=== PATIENT | male | born 1950 | race Caucasian/White ===

== ENCOUNTER → 2021-01-26 | Outpatient (CLI) | payer MEDICARE, OTHER ==
[2021-01-26 17:24] LABS: BUN/CREATININE RATIO 28 (0-10)
== END ==
LOC: LAB 16:29
PROVIDERS: Internal Medicine Pulmonary Disease
DX: R60.0 Localized edema (principal); J44.9 Chronic obstructive pulmonary disease, unspecified
CPT/HCPCS: 36415; 80048

== ENCOUNTER 2021-12-09 13:41 | Inpatient (IN) | payer MEDICARE, OTHER ==
[~2021-12-09] VITALS: Ht 177.8 cm; Wt 103.4 kg
[2021-12-09 14:32] LABS: HEMOGLOBIN 12.3 gm/dl (14.0-17.5); RED BLOOD COUNT 4.43 M/UL (4.20-5.50)
[2021-12-09 15:38] LABS: BUN/CREATININE RATIO 26 (0-10)
[2021-12-09] MEDS ORDERED: ASPIRIN EC81 MG PO (19:03)
[2021-12-09] MEDS ORDERED: PREDNISONE10 MG PO (19:04)
[2021-12-09] MEDS ORDERED: METOPROLOL TART25 MG PO (19:04)
[2021-12-09] MEDS ORDERED: LISINOPRIL5 MG PO (19:04)
[2021-12-09] MEDS ORDERED: DIAMOX 250 MG250 MG PO (19:05)
[2021-12-09] MEDS ORDERED: STIOLTO RESPIMAT4 GM INH (19:06)
[2021-12-09] MEDS ORDERED: PROAIR HFA8.5 GM INH (19:06)
[2021-12-10 04:07] LABS: HEMOGLOBIN 11.8 gm/dl (14.0-17.5); RED BLOOD COUNT 4.22 M/UL (4.20-5.50); WHITE BLOOD COUNT 4.2 K/UL (4.5-11.0)
[2021-12-10 04:34] LABS: BUN/CREATININE RATIO 34 (0-10)
[2021-12-10 12:55] LABS: BORDETELLA PARAPERTUSSIS Not Detected (Not Detectd); BORDETELLA PERTUSSIS Not Detected (Not Detectd); CHLAMYDIA PNEUMONIAE Not Detected (Not Detectd); CORONAVIRUS HKU1 Not Detected (Not Detectd); CORONAVIRUS NL63 Not Detected (Not Detectd); CORONAVIRUS OC43 Not Detected (Not Detectd); CORONOAVIRUS 229E Not Detected (Not Detectd); HUMAN METAPNEUMOVIRUS Not Detected (Not Detectd); HUMAN RHINOVIRUS/ENTEROVIRUS Not Detected (Not Detectd); INFLUENZA A Not Detected (Not Detectd); INFLUENZA B Not Detected (Not Detectd); MYCOPLASMA PNEUMONIAE Not Detected (Not Detectd); PARAINFLUENZA VIRUS 1 Not Detected (Not Detectd); PARAINFLUENZA VIRUS 2 Not Detected (Not Detectd); PARAINFLUENZA VIRUS 3 Not Detected (Not Detectd); PARAINFLUENZA VIRUS 4 Not Detected (Not Detectd); RESPIRATORY SYNCYTIAL VIRUS Not Detected (Not Detectd)
[2021-12-10 15:58] LABS: SARS-CoV-2 DETECTED (Not Detectd)
[2021-12-11 04:57] LABS: HEMOGLOBIN 11.1 gm/dl (14.0-17.5); RED BLOOD COUNT 3.95 M/UL (4.20-5.50); WHITE BLOOD COUNT 3.5 K/UL (4.5-11.0)
[2021-12-11 05:16] LABS: BUN/CREATININE RATIO 38 (0-10)
[2021-12-12 04:49] LABS: HEMOGLOBIN 11.1 gm/dl (14.0-17.5); RED BLOOD COUNT 3.94 M/UL (4.20-5.50)
[2021-12-12 04:53] LABS: WHITE BLOOD COUNT 2.5 K/UL (4.5-11.0)
[2021-12-12 05:06] LABS: BUN/CREATININE RATIO 31 (0-10)
[2021-12-13 05:02] LABS: HEMOGLOBIN 10.3 gm/dl (14.0-17.5); RED BLOOD COUNT 3.65 M/UL (4.20-5.50); WHITE BLOOD COUNT 2.2 K/UL (4.5-11.0)
[2021-12-13 05:26] LABS: BUN/CREATININE RATIO 53 (0-10)
[2021-12-13 16:10] LABS: ORGANISM ID Not indicated. (.); SPECIMEN SOURCE Urine (.); STREPTOCOCCUS PNEUMONIAE AG Negative (Negative)
[2021-12-14 05:14] LABS: HEMOGLOBIN 8.9 gm/dl (14.0-17.5); WHITE BLOOD COUNT 2.4 K/UL (4.5-11.0)
[2021-12-14 05:19] LABS: RED BLOOD COUNT 3.18 M/UL (4.20-5.50)
[2021-12-14 08:37] LABS: BUN/CREATININE RATIO 56 (0-10)
[2021-12-14 14:16] LABS: HEMATOCRIT 31.6 % (37.5-51.0)
[2021-12-14 21:36] LABS: HEMOGLOBIN 7.7 gm/dl (14.0-17.5)
[2021-12-15 08:17] LABS: BUN/CREATININE RATIO 52 (0-10)
[2021-12-15 10:12] LABS: RED BLOOD COUNT 2.88 M/UL (4.20-5.50)
[2021-12-15 10:13] LABS: WHITE BLOOD COUNT 7.4 K/UL (4.5-11.0)
[2021-12-16 04:59] LABS: RED BLOOD COUNT 2.4 M/UL (4.20-5.50); WHITE BLOOD COUNT 4.5 K/UL (4.5-11.0)
[2021-12-16 05:00] LABS: HEMOGLOBIN 6.6 gm/dl (14.0-17.5)
[2021-12-16 05:10] LABS: BUN/CREATININE RATIO 33 (0-10)
--- NOTE | 2021-12-16 06:55 | NUR ---
SPOKE WITH THE PATIENTS ABOUT TRANSFUSING 1 UNIT OF PRBCS. THE PATIENT HASD ALREADY CONSENTED TO TREATMENT. HIS ALSO CONSENTS TO HIM RECIEVING 1 UNIT PRBCS. CONSENT IN CHART.
[2021-12-16 09:54] LABS: RED BLOOD COUNT 2.34 M/UL (4.20-5.50); WHITE BLOOD COUNT 4.3 K/UL (4.5-11.0)
[2021-12-16 09:57] LABS: HEMOGLOBIN 6.8 gm/dl (14.0-17.5)
[2021-12-16 15:43] LABS: HEMOGLOBIN 7.8 gm/dl (14.0-17.5)
--- NOTE | 2021-12-16 16:23 | NUR ---
RECTAL TUIBE REMOVED DUE TO THICKENED STOOL NOT MOVING THROUGH TUBE.
[2021-12-17 06:59] LABS: HEMOGLOBIN 7.8 gm/dl (14.0-17.5)
[2021-12-17 07:05] LABS: RED BLOOD COUNT 2.73 M/UL (4.20-5.50); WHITE BLOOD COUNT 5.5 K/UL (4.5-11.0)
[2021-12-17 08:01] LABS: BUN/CREATININE RATIO 25 (0-10)
[2021-12-18 05:13] LABS: HEMOGLOBIN 8.4 gm/dl (14.0-17.5); RED BLOOD COUNT 2.93 M/UL (4.20-5.50); WHITE BLOOD COUNT 5.4 K/UL (4.5-11.0)
[2021-12-18 07:16] LABS: BUN/CREATININE RATIO 23 (0-10)
[2021-12-19 05:40] LABS: HEMOGLOBIN 8.4 gm/dl (14.0-17.5); RED BLOOD COUNT 2.86 M/UL (4.20-5.50)
[2021-12-19 05:56] LABS: WHITE BLOOD COUNT 7.1 K/UL (4.5-11.0)
[2021-12-19 06:16] LABS: BUN/CREATININE RATIO 17 (0-10)
[2021-12-20 05:24] LABS: HEMOGLOBIN 8.5 gm/dl (14.0-17.5); RED BLOOD COUNT 2.91 M/UL (4.20-5.50); WHITE BLOOD COUNT 6.9 K/UL (4.5-11.0)
[2021-12-20 05:57] LABS: BUN/CREATININE RATIO 15 (0-10)
[2021-12-21 02:54] LABS: HEMOGLOBIN 9.3 gm/dl (14.0-17.5)
[2021-12-21 02:55] LABS: RED BLOOD COUNT 3.22 M/UL (4.20-5.50); WHITE BLOOD COUNT 8.7 K/UL (4.5-11.0)
[2021-12-21 03:30] LABS: BUN/CREATININE RATIO 17 (0-10)
[2021-12-22 06:01] LABS: HEMOGLOBIN 9.9 gm/dl (14.0-17.5); RED BLOOD COUNT 3.43 M/UL (4.20-5.50); WHITE BLOOD COUNT 8.6 K/UL (4.5-11.0)
[2021-12-22 06:25] LABS: BUN/CREATININE RATIO 20 (0-10)
--- NOTE | 2021-12-22 12:36 | NUR ---
OFFERED TO REMOVE DOMINGUEZ CATHETER. OFFERED TO LET PATIENT USE A URINAL. PATIENT REFUSED TO LET STAFF REMOVE DOMINGUEZ CATHETER, STATES HE CANT USE A URINAL. WILL INFORM
[2021-12-23 02:43] LABS: HEMOGLOBIN 9.4 gm/dl (14.0-17.5); RED BLOOD COUNT 3.28 M/UL (4.20-5.50); WHITE BLOOD COUNT 6.8 K/UL (4.5-11.0)
[2021-12-23 03:09] LABS: BUN/CREATININE RATIO 20 (0-10)
[2021-12-24 04:35] LABS: HEMOGLOBIN 9.9 gm/dl (14.0-17.5); RED BLOOD COUNT 3.44 M/UL (4.20-5.50); WHITE BLOOD COUNT 6.9 K/UL (4.5-11.0)
[2021-12-24 04:52] LABS: BUN/CREATININE RATIO 15 (0-10)
[2021-12-25 07:51] LABS: RED BLOOD COUNT 3.51 M/UL (4.20-5.50)
[2021-12-25 08:19] LABS: BUN/CREATININE RATIO 18 (0-10)
[2021-12-26 08:41] LABS: HEMOGLOBIN 9.4 gm/dl (14.0-17.5); RED BLOOD COUNT 3.3 M/UL (4.20-5.50); WHITE BLOOD COUNT 7.5 K/UL (4.5-11.0)
[2021-12-26 09:05] LABS: BUN/CREATININE RATIO 15 (0-10)
[2021-12-27 04:00] LABS: HEMOGLOBIN 9.3 gm/dl (14.0-17.5); RED BLOOD COUNT 3.3 M/UL (4.20-5.50); WHITE BLOOD COUNT 7.5 K/UL (4.5-11.0)
[2021-12-27 04:15] LABS: BUN/CREATININE RATIO 15 (0-10)
[2021-12-28 03:08] LABS: HEMOGLOBIN 9.8 gm/dl (14.0-17.5); RED BLOOD COUNT 3.48 M/UL (4.20-5.50); WHITE BLOOD COUNT 7.7 K/UL (4.5-11.0)
[2021-12-28 03:46] LABS: BUN/CREATININE RATIO 18 (0-10)
[2021-12-30] MEDS ORDERED: PROTONIX 40 MG40 M1 PO (10:39)
[2021-12-30] MEDS ORDERED: IPRAT-ALBUT 0.5-3 ML NEB (10:39)
[2021-12-30] MEDS ORDERED: VITAMIN D 40400 UNIT PO (10:39)
[2021-12-30] MEDS ORDERED: CELEXA 20MG TAB20 MG PO (10:39)
[2021-12-30] MEDS ORDERED: THERAGRAN M TAB1 EA PO (10:39)
[2021-12-30] MEDS ORDERED: BUDESONIDE0.5 MG/2 M NEB (10:39)
[2021-12-30] MEDS ORDERED: FLORANEX GRANU1 EACH PO (10:39)
== END 2021-12-30 20:00 | DRG 871 ==
LOC: ER1 13:41 → CDU 16:26 → PROG CARE 16:26 → CCU 16:26 → PROG CARE 12-20 17:56
PROVIDERS: Internal Medicine; Internal Medicine Critical Care Medicine; Internal Medicine Hematology & Oncology; Internal Medicine Pulmonary Disease; Physician Assistant Medical; Registered Nurse; ADMIT Internal Medicine
PROC: 8E0ZXY6 Isolation (ICD-10-PCS; principal; 2021-12-09)
PROC: XW033E5 Introduction of Remdesivir Anti-infective into Peripheral Vein, Percutaneous Approach, New Technology Group 5 (ICD-10-PCS; 2021-12-09)
PROC: 3E0333Z Introduction of Anti-inflammatory into Peripheral Vein, Percutaneous Approach (ICD-10-PCS; 2021-12-09)
PROC: 5A09357 Assistance with Respiratory Ventilation, Less than 24 Consecutive Hours, Continuous Positive Airway Pressure (ICD-10-PCS; 2021-12-09)
PROC: 3E03329 Introduction of Other Anti-infective into Peripheral Vein, Percutaneous Approach (ICD-10-PCS; 2021-12-09)
PROC: XW033H5 Introduction of Tocilizumab into Peripheral Vein, Percutaneous Approach, New Technology Group 5 (ICD-10-PCS; 2021-12-10)
PROC: 5A0935A Assistance with Respiratory Ventilation, Less than 24 Consecutive Hours, High Flow/Velocity Cannula (ICD-10-PCS; 2021-12-10)
PROC: 5A09357 Assistance with Respiratory Ventilation, Less than 24 Consecutive Hours, Continuous Positive Airway Pressure (ICD-10-PCS; 2021-12-11)
PROC: B24BZZZ Ultrasonography of Heart with Aorta (ICD-10-PCS; 2021-12-12)
PROC: 5A0935A Assistance with Respiratory Ventilation, Less than 24 Consecutive Hours, High Flow/Velocity Cannula (ICD-10-PCS; 2021-12-12)
PROC: 5A09357 Assistance with Respiratory Ventilation, Less than 24 Consecutive Hours, Continuous Positive Airway Pressure (ICD-10-PCS; 2021-12-13)
PROC: 5A0935A Assistance with Respiratory Ventilation, Less than 24 Consecutive Hours, High Flow/Velocity Cannula (ICD-10-PCS; 2021-12-13)
PROC: 5A09357 Assistance with Respiratory Ventilation, Less than 24 Consecutive Hours, Continuous Positive Airway Pressure (ICD-10-PCS; 2021-12-14)
PROC: 5A0935A Assistance with Respiratory Ventilation, Less than 24 Consecutive Hours, High Flow/Velocity Cannula (ICD-10-PCS; 2021-12-15)
PROC: 30233N1 Transfusion of Nonautologous Red Blood Cells into Peripheral Vein, Percutaneous Approach (ICD-10-PCS; 2021-12-16)
PROC: 5A09357 Assistance with Respiratory Ventilation, Less than 24 Consecutive Hours, Continuous Positive Airway Pressure (ICD-10-PCS; 2021-12-16)
PROC: 5A0935A Assistance with Respiratory Ventilation, Less than 24 Consecutive Hours, High Flow/Velocity Cannula (ICD-10-PCS; 2021-12-16)
PROC: 5A09357 Assistance with Respiratory Ventilation, Less than 24 Consecutive Hours, Continuous Positive Airway Pressure (ICD-10-PCS; 2021-12-17)
PROC: 5A0935A Assistance with Respiratory Ventilation, Less than 24 Consecutive Hours, High Flow/Velocity Cannula (ICD-10-PCS; 2021-12-17)
PROC: 5A09357 Assistance with Respiratory Ventilation, Less than 24 Consecutive Hours, Continuous Positive Airway Pressure (ICD-10-PCS; 2021-12-17)
PROC: 5A0935A Assistance with Respiratory Ventilation, Less than 24 Consecutive Hours, High Flow/Velocity Cannula (ICD-10-PCS; 2021-12-18)
PROC: 5A09357 Assistance with Respiratory Ventilation, Less than 24 Consecutive Hours, Continuous Positive Airway Pressure (ICD-10-PCS; 2021-12-19)
PROC: 5A0935A Assistance with Respiratory Ventilation, Less than 24 Consecutive Hours, High Flow/Velocity Cannula (ICD-10-PCS; 2021-12-19)
PROC: 5A09357 Assistance with Respiratory Ventilation, Less than 24 Consecutive Hours, Continuous Positive Airway Pressure (ICD-10-PCS; 2021-12-20)
PROC: 5A09357 Assistance with Respiratory Ventilation, Less than 24 Consecutive Hours, Continuous Positive Airway Pressure (ICD-10-PCS; 2021-12-22)
PROC: 5A09357 Assistance with Respiratory Ventilation, Less than 24 Consecutive Hours, Continuous Positive Airway Pressure (ICD-10-PCS; 2021-12-23)
PROC: 5A09357 Assistance with Respiratory Ventilation, Less than 24 Consecutive Hours, Continuous Positive Airway Pressure (ICD-10-PCS; 2021-12-23)
PROC: 5A0935A Assistance with Respiratory Ventilation, Less than 24 Consecutive Hours, High Flow/Velocity Cannula (ICD-10-PCS; 2021-12-23)
PROC: 5A09357 Assistance with Respiratory Ventilation, Less than 24 Consecutive Hours, Continuous Positive Airway Pressure (ICD-10-PCS; 2021-12-24)
PROC: 5A0935A Assistance with Respiratory Ventilation, Less than 24 Consecutive Hours, High Flow/Velocity Cannula (ICD-10-PCS; 2021-12-24)
PROC: 5A09357 Assistance with Respiratory Ventilation, Less than 24 Consecutive Hours, Continuous Positive Airway Pressure (ICD-10-PCS; 2021-12-25)
PROC: 5A0935A Assistance with Respiratory Ventilation, Less than 24 Consecutive Hours, High Flow/Velocity Cannula (ICD-10-PCS; 2021-12-25)
PROC: 5A0935A Assistance with Respiratory Ventilation, Less than 24 Consecutive Hours, High Flow/Velocity Cannula (ICD-10-PCS; 2021-12-25)
PROC: 5A09357 Assistance with Respiratory Ventilation, Less than 24 Consecutive Hours, Continuous Positive Airway Pressure (ICD-10-PCS; 2021-12-26)
PROC: 5A0945A Assistance with Respiratory Ventilation, 24-96 Consecutive Hours, High Flow/Velocity Cannula (ICD-10-PCS; 2021-12-26)
PROC: 5A0935A Assistance with Respiratory Ventilation, Less than 24 Consecutive Hours, High Flow/Velocity Cannula (ICD-10-PCS; 2021-12-30)
DX: A41.89 Other specified sepsis (principal); U07.1 COVID-19; J12.82 Pneumonia due to coronavirus disease 2019; J96.21 Acute and chronic respiratory failure with hypoxia; J96.22 Acute and chronic respiratory failure with hypercapnia; J15.9 Unspecified bacterial pneumonia; R65.21 Severe sepsis with septic shock; J44.0 Chronic obstructive pulmonary disease with (acute) lower respiratory infection; E66.2 Morbid (severe) obesity with alveolar hypoventilation; D61.818 Other pancytopenia; K92.2 Gastrointestinal hemorrhage, unspecified; D62 Acute posthemorrhagic anemia; I50.32 Chronic diastolic (congestive) heart failure; J44.1 Chronic obstructive pulmonary disease with (acute) exacerbation; L89.322 Pressure ulcer of left buttock, stage 2; D69.6 Thrombocytopenia, unspecified; L89.312 Pressure ulcer of right buttock, stage 2; G47.33 Obstructive sleep apnea (adult) (pediatric); L89.152 Pressure ulcer of sacral region, stage 2; B96.89 Other specified bacterial agents as the cause of diseases classified elsewhere; K22.9 Disease of esophagus, unspecified; I48.0 Paroxysmal atrial fibrillation; R53.81 Other malaise; Z79.01 Long term (current) use of anticoagulants; Z99.81 Dependence on supplemental oxygen; Z23 Encounter for immunization; Z79.82 Long term (current) use of aspirin; Z90.49 Acquired absence of other specified parts of digestive tract; Z87.891 Personal history of nicotine dependence; Z83.3 Family history of diabetes mellitus; Z68.32 Body mass index [BMI] 32.0-32.9, adult
CPT/HCPCS: ECHO; 36415; 36430; 36600; 71045; 71275; 80048; 80053; 80202; 81001; 82272; 82550; 82553; 82607; 82728; 82747; 82803; 82962; 83540; 83550; 83605; 83615; 83735; 83874; 83880; 83921; 84132; 84484; 85007; 85014; 85018; 85025; 85027; 85379; 85384; 85610; 85730; 86140; 86850; 86900; 86901; 86920; 87040; 87081; 87086; 87278; 87324; 87449; 87633; 87899; 92526; 92610; 93005; 93306; 94640; 94660; 94664; 94668; 94760; 96372; 96374; 96375; 96376; 97110-GP-CQ; 97116; 97116-GP-CQ; 97161; 97530; 97530-GP-CQ; 99285; A6212; C9113; G0008; J0248; J0456; J0696; J1100; J1650; J1956; J2185; J2270; J2370; J2405; J2543; J2920; J2930; J3370; J7030; J7060; J7070; P9016; Q0249; Q9967; U0002

== ENCOUNTER 2022-04-02 10:55 | Inpatient (IN) | payer MEDICARE, OTHER ==
[~2022-04-02] VITALS: Ht 175.3 cm; Wt 94.3 kg
[~2022-04-02 10:55] MED LIST: ASPIRIN EC81 MG PO; BUDESONIDE0.5 MG/2 M NEB; CELEXA 20MG TAB20 MG PO; DIAMOX 250 MG250 MG PO; FLORANEX GRANU1 EACH PO; IPRAT-ALBUT 0.5-3 ML NEB; LISINOPRIL5 MG PO; METOPROLOL TART25 MG PO; PREDNISONE10 MG PO; PROAIR HFA8.5 GM INH; PROTONIX 40 MG40 M1 PO; STIOLTO RESPIMAT4 GM INH; THERAGRAN M TAB1 EA PO; VITAMIN D 40400 UNIT PO
[2022-04-02 14:15] LABS: HEMOGLOBIN 10.4 gm/dl (14.0-17.5); RED BLOOD COUNT 3.98 M/UL (4.20-5.50); WHITE BLOOD COUNT 12.2 K/UL (4.5-11.0)
[2022-04-02] MEDS ORDERED: COREG3.125 MG PO (14:40)
[2022-04-02] MEDS ORDERED: CELEXA10 MG PO (14:41)
[2022-04-02] MEDS ORDERED: KLONOPIN TAB 00.5 MG PO (14:43)
[2022-04-02] MEDS ORDERED: COLACE100 MG PO (14:43)
[2022-04-02] MEDS ORDERED: LASIX40 MG PO (14:44)
[2022-04-02] MEDS ORDERED: NEURONTIN100 MG PO (14:45)
[2022-04-02 14:59] LABS: BUN/CREATININE RATIO 33 (0-10)
[2022-04-02] MEDS ORDERED: MUCINEX600 MG PO (15:40)
[2022-04-02] MEDS ORDERED: HYDROCODON-ACE1 EAC4 PO (15:40)
[2022-04-02] MEDS ORDERED: ROBAXIN 750 MG750 MG PO (15:42)
[2022-04-02] MEDS ORDERED: MIRALAX 119 GR119 GM PO (15:43)
[2022-04-02] MEDS ORDERED: PREDNISONE 10 M10 MG PO (15:45)
[2022-04-02] MEDS ORDERED: SPIRONOLACTONE25 MG PO (15:45)
[2022-04-02] MEDS ORDERED: CARAFATE1 GM PO (15:46)
[2022-04-03 04:59] LABS: HEMOGLOBIN 9.2 gm/dl (14.0-17.5); WHITE BLOOD COUNT 9.5 K/UL (4.5-11.0)
[2022-04-03 05:03] LABS: RED BLOOD COUNT 3.51 M/UL (4.20-5.50)
[2022-04-03 05:39] LABS: BUN/CREATININE RATIO 38 (0-10)
[2022-04-04 05:09] LABS: HEMOGLOBIN 9.3 gm/dl (14.0-17.5); RED BLOOD COUNT 3.49 M/UL (4.20-5.50); WHITE BLOOD COUNT 8.2 K/UL (4.5-11.0)
[2022-04-04 06:01] LABS: BUN/CREATININE RATIO 38 (0-10)
[2022-04-05 05:18] LABS: HEMOGLOBIN 9.2 gm/dl (14.0-17.5); RED BLOOD COUNT 3.7 M/UL (4.20-5.50); WHITE BLOOD COUNT 8.2 K/UL (4.5-11.0)
[2022-04-05 05:54] LABS: BUN/CREATININE RATIO 36 (0-10)
[2022-04-05 18:43] LABS: HEMOGLOBIN 10.2 gm/dl (14.0-17.5); RED BLOOD COUNT 3.92 M/UL (4.20-5.50)
[2022-04-05 18:47] LABS: BUN/CREATININE RATIO 37 (0-10)
[2022-04-05 19:27] LABS: WHITE BLOOD COUNT 14.9 K/UL (4.5-11.0)
[2022-04-06 05:38] LABS: HEMOGLOBIN 9.7 gm/dl (14.0-17.5); RED BLOOD COUNT 3.77 M/UL (4.20-5.50); WHITE BLOOD COUNT 11.9 K/UL (4.5-11.0)
[2022-04-06 05:44] LABS: BUN/CREATININE RATIO 33 (0-10)
[2022-04-06 17:11] LABS: ORGANISM ID Not indicated. (.); SPECIMEN SOURCE Urine (.); STREPTOCOCCUS PNEUMONIAE AG Negative (Negative)
[2022-04-07 05:12] LABS: HEMOGLOBIN 9.4 gm/dl (14.0-17.5); RED BLOOD COUNT 3.56 M/UL (4.20-5.50); WHITE BLOOD COUNT 10.7 K/UL (4.5-11.0)
[2022-04-07 05:29] LABS: BUN/CREATININE RATIO 28 (0-10)
[2022-04-08 06:07] LABS: HEMOGLOBIN 9.1 gm/dl (14.0-17.5); RED BLOOD COUNT 3.54 M/UL (4.20-5.50)
[2022-04-08 06:10] LABS: WHITE BLOOD COUNT 14.2 K/UL (4.5-11.0)
[2022-04-08 06:19] LABS: BUN/CREATININE RATIO 33 (0-10)
[2022-04-09 06:00] LABS: RED BLOOD COUNT 3.45 M/UL (4.20-5.50); WHITE BLOOD COUNT 13.5 K/UL (4.5-11.0)
[2022-04-09 06:25] LABS: BUN/CREATININE RATIO 40 (0-10)
[2022-04-10 05:52] LABS: HEMOGLOBIN 8.9 gm/dl (14.0-17.5); RED BLOOD COUNT 3.45 M/UL (4.20-5.50); WHITE BLOOD COUNT 13.7 K/UL (4.5-11.0)
[2022-04-10 06:02] LABS: BUN/CREATININE RATIO 47 (0-10)
[2022-04-11 07:33] LABS: HEMOGLOBIN 8.9 gm/dl (14.0-17.5); RED BLOOD COUNT 3.57 M/UL (4.20-5.50); WHITE BLOOD COUNT 10.8 K/UL (4.5-11.0)
[2022-04-11 08:01] LABS: BUN/CREATININE RATIO 44 (0-10)
[2022-04-12 07:29] LABS: HEMOGLOBIN 8.1 gm/dl (14.0-17.5); RED BLOOD COUNT 3.25 M/UL (4.20-5.50)
[2022-04-12 07:31] LABS: WHITE BLOOD COUNT 6.4 K/UL (4.5-11.0)
[2022-04-12 07:52] LABS: BUN/CREATININE RATIO 57 (0-10)
[2022-04-13] MEDS ORDERED: PREDNISONE20 MG PO (09:28)
[2022-04-13] MEDS ORDERED: ENOXAPARIN40 MG/0.4 SC (09:28)
[2022-04-13] MEDS ORDERED: ROXICODONE TAB 55 MG PO (09:28)
[2022-04-13] MEDS ORDERED: NEURONTIN100 MG PO (09:28)
[2022-04-13] MEDS ORDERED: KLONOPIN TAB 00.5 MG PO (09:28)
--- NOTE | 2022-04-13 13:28 | NUR ---
Report called to Saritha at [facility] at 11:55 EMS called at [phone]. Awaiting transport at [facility].
== END 2022-04-13 15:28 | DRG 853 ==
LOC: CCU 13:05
PROVIDERS: Internal Medicine Pulmonary Disease; Orthopaedic Surgery; ADMIT Internal Medicine
PROC: 5A09357 Assistance with Respiratory Ventilation, Less than 24 Consecutive Hours, Continuous Positive Airway Pressure (ICD-10-PCS; 2022-04-02)
PROC: B24BZZZ Ultrasonography of Heart with Aorta (ICD-10-PCS; 2022-04-03)
PROC: 5A09357 Assistance with Respiratory Ventilation, Less than 24 Consecutive Hours, Continuous Positive Airway Pressure (ICD-10-PCS; 2022-04-03)
PROC: 5A0935A Assistance with Respiratory Ventilation, Less than 24 Consecutive Hours, High Flow/Velocity Cannula (ICD-10-PCS; 2022-04-03)
PROC: 5A0935A Assistance with Respiratory Ventilation, Less than 24 Consecutive Hours, High Flow/Velocity Cannula (ICD-10-PCS; 2022-04-04)
PROC: 3E03329 Introduction of Other Anti-infective into Peripheral Vein, Percutaneous Approach (ICD-10-PCS; 2022-04-05)
PROC: 5A09357 Assistance with Respiratory Ventilation, Less than 24 Consecutive Hours, Continuous Positive Airway Pressure (ICD-10-PCS; 2022-04-05)
PROC: 5A0935A Assistance with Respiratory Ventilation, Less than 24 Consecutive Hours, High Flow/Velocity Cannula (ICD-10-PCS; 2022-04-05)
PROC: 0QS606Z Reposition Right Upper Femur with Intramedullary Internal Fixation Device, Open Approach (ICD-10-PCS; principal; 2022-04-05 20:00)
PROC: 5A09357 Assistance with Respiratory Ventilation, Less than 24 Consecutive Hours, Continuous Positive Airway Pressure (ICD-10-PCS; 2022-04-06)
PROC: 5A0945A Assistance with Respiratory Ventilation, 24-96 Consecutive Hours, High Flow/Velocity Cannula (ICD-10-PCS; 2022-04-06)
PROC: 5A09357 Assistance with Respiratory Ventilation, Less than 24 Consecutive Hours, Continuous Positive Airway Pressure (ICD-10-PCS; 2022-04-08)
PROC: 5A0935A Assistance with Respiratory Ventilation, Less than 24 Consecutive Hours, High Flow/Velocity Cannula (ICD-10-PCS; 2022-04-09)
PROC: 5A09357 Assistance with Respiratory Ventilation, Less than 24 Consecutive Hours, Continuous Positive Airway Pressure (ICD-10-PCS; 2022-04-10)
PROC: 5A0935A Assistance with Respiratory Ventilation, Less than 24 Consecutive Hours, High Flow/Velocity Cannula (ICD-10-PCS; 2022-04-10)
PROC: 5A09357 Assistance with Respiratory Ventilation, Less than 24 Consecutive Hours, Continuous Positive Airway Pressure (ICD-10-PCS; 2022-04-11)
PROC: 5A0935A Assistance with Respiratory Ventilation, Less than 24 Consecutive Hours, High Flow/Velocity Cannula (ICD-10-PCS; 2022-04-11)
PROC: 5A09357 Assistance with Respiratory Ventilation, Less than 24 Consecutive Hours, Continuous Positive Airway Pressure (ICD-10-PCS; 2022-04-12)
PROC: 5A0935A Assistance with Respiratory Ventilation, Less than 24 Consecutive Hours, High Flow/Velocity Cannula (ICD-10-PCS; 2022-04-12)
PROC: 5A09357 Assistance with Respiratory Ventilation, Less than 24 Consecutive Hours, Continuous Positive Airway Pressure (ICD-10-PCS; 2022-04-13)
PROC: 5A0935A Assistance with Respiratory Ventilation, Less than 24 Consecutive Hours, High Flow/Velocity Cannula (ICD-10-PCS; 2022-04-13)
DX: A41.9 Sepsis, unspecified organism (principal); E43 Unspecified severe protein-calorie malnutrition; S72.141A Displaced intertrochanteric fracture of right femur, initial encounter for closed fracture; J18.9 Pneumonia, unspecified organism; J96.21 Acute and chronic respiratory failure with hypoxia; J96.22 Acute and chronic respiratory failure with hypercapnia; J44.0 Chronic obstructive pulmonary disease with (acute) lower respiratory infection; J44.1 Chronic obstructive pulmonary disease with (acute) exacerbation; I50.32 Chronic diastolic (congestive) heart failure; E87.3 Alkalosis; E66.2 Morbid (severe) obesity with alveolar hypoventilation; R65.20 Severe sepsis without septic shock; I11.0 Hypertensive heart disease with heart failure; Z66 Do not resuscitate; W18.30XA Fall on same level, unspecified, initial encounter; R73.9 Hyperglycemia, unspecified; T38.0X5A Adverse effect of glucocorticoids and synthetic analogues, initial encounter; G47.33 Obstructive sleep apnea (adult) (pediatric); D64.9 Anemia, unspecified; I48.0 Paroxysmal atrial fibrillation; Z86.16 Personal history of COVID-19; Z95.0 Presence of cardiac pacemaker; Y92.091 Bathroom in other non-institutional residence as the place of occurrence of the external cause; Z99.81 Dependence on supplemental oxygen; Z87.891 Personal history of nicotine dependence; G89.29 Other chronic pain; F41.9 Anxiety disorder, unspecified; E87.6 Hypokalemia; Z68.31 Body mass index [BMI] 31.0-31.9, adult
CPT/HCPCS: ECHO; 36415; 36600; 71045; 72170; 73502; 73552; 76000; 80048; 80053; 80202; 82140; 82550; 82553; 82728; 82803; 83605; 83615; 83735; 83880; 84100; 84484; 85007; 85025; 85027; 85379; 85384; 85610; 85730; 86140; 86850; 86900; 86901; 87040; 87070; 87081; 87205; 87278; 87899; 92526; 92610; 93306; 93970; 94640; 94645; 94660; 94664; 94760; 97162; 97166; 97530; 97530-GP-CQ; A6212; C1713; C9113; J0690; J1100; J1170; J1205; J1644; J1650; J1940; J2185; J2270; J2405; J2704; J2795; J2920; J3010; J3370; J7030; J7050; J7070; Q9967; U0002